=== PATIENT | female | born 1970 | race Caucasian/White ===

== ENCOUNTER → 2017-01-01 07:51 | Day surgery (SDC) | payer OTHER ==
--- NOTE | 2016-12-31 03:40 | HP ---
PREOPERATIVE HISTORY AND PHYSICAL: DATE OF ADMISSION: 01/01/17 [facility] CHIEF COMPLAINT: Left wrist pain. HISTORY OF PRESENT ILLNESS: Tiffani is a 46-year-old female who has pain in her left wrist. She was diagnosed with de Quervain's tenosynovitis. She had physical therapy and injection of cortisone, but these symptoms have recurred. She now presents for left de Quervain's release. PAST MEDICAL HISTORY: Significant for trigger finger, tachycardia, shoulder pain, lateral epicondylitis, cervicalgia, hypothyroidism, attention deficit disorder. MEDICATIONS: 1. Escitalopram oxalate 20 mg p.o. daily. 2. Wellbutrin SR 150 mg p.o. b.i.d. 3. Vitamin B12 1000 mcg p.o. daily. 4. Abilify 2 mg p.o. daily. 5. Levothyroxine 137 mcg 1 p.o. daily. 6. Methylphenidate HCL 18 mg 1 p.o. q.a.m. 7. Amphetamine and dextroamphetamine 10 mg 1 to 4 p.o. daily. DRUG ALLERGIES: SULFA and CODEINE. SOCIAL HISTORY: She lives alone. She denies tobacco use, occasionally consumes alcohol. She exercises regularly. REVIEW OF SYSTEMS: Positive for occasional shortness of breath on exertion, positive for history of depression, anxiety and intermittent back pain. Otherwise negative for cephalic, cardiovascular, respiratory, gastrointestinal, genitourinary, other musculoskeletal, skin, neurologic, endocrine, and hematologic symptoms. PHYSICAL EXAMINATION GENERAL: She is a healthy-appearing very pleasant female in minimal distress at rest. VITAL SIGNS: Height is 61 inches, weight 191 pounds. Pulse 84, blood pressure 118/86, respiratory rate 18. HEENT: Exam is unremarkable. Her eye movements are concentric. NECK: She has good range of motion of her neck with minimal pain. No masses are palpated. LUNGS: Clear to auscultation. Good inspiratory effort. No wheezing. CARDIAC: Regular rate and rhythm without murmur. PERIPHERAL VASCULAR: She has palpable pulses and no peripheral edema. EXTREMITIES: She has some swelling in the area of the radial styloid of her left wrist. She has tenderness to palpation over the radial styloid in the first dorsal compartment. She has a positive Li's test. She can make a fist. Her neurovascular function is intact. NEUROLOGIC: She is alert and oriented without focal deficit. IMPRESSION: Left de Quervain's tenosynovitis, which has failed conservative treatment. PLAN/RECOMMENDATIONS: Plan is for left de Quervain's release. The surgical procedure, risks and benefits were explained to the patient today and she agrees to proceed. We will see her back in followup 10 to 14 days postop. [id number]/[facility] #: [id number]
[~2017-01-01 07:51] MED LIST: Buffered Lidocaine 1% SYRIN* 3 ML/SYR SYRINGE INTRADERM ONE; Lidocaine 1% INJ* 10 MG/ML 30 ML SDV ONE; Midazolam* 1 MG/ML 2 ML VIAL (2 MG) ONE; Propofol* 10 MG/ML 20 ML BTL IV PUSH ONE; fentaNYL* 50 MCG/ML 2 ML VIAL (100 MCG VIAL) ONE
[2017-01-01 10:35] VITALS: BP 107/67
--- NOTE | 2017-01-02 01:44 | OP ---
DATE OF OPERATION: 01/01/17 [facility] DATE OF : 68 SURGEON: Fide Arredondo MD TANGLED YARN SPOOL STRAIGHTENER: MARII Reed ANESTHESIOLOGIST: Anil Hammer MD ANESTHESIA: Local MAC. PRE-OP DIAGNOSIS: Left de Quervain's tenosynovitis. POST-OP DIAGNOSIS: Left de Quervain's tenosynovitis. OPERATIVE PROCEDURE: Left de Quervain's release. INDICATIONS: Tiffani is a 46-year-old female who has pain on the radial aspect of her left wrist. She has had one injection, which gave her relief for several months and now opts for surgery for de Quervain's release. ESTIMATED BLOOD LOSS: Zero. TOURNIQUET TIME: About 10 minutes. DESCRIPTION OF PROCEDURE: The patient was brought to the operating room, was given a sedation anesthetic, and a local infiltration of 10 cc of 1% plain lidocaine at the radial styloid of her left wrist. The skin of her left upper extremity was prepped and draped in the usual sterile fashion. The hand and forearm were exsanguinated and the tourniquet elevated to 250 mmHg. A longitudinal incision was made centered at the tip of the radial styloid. We dissected bluntly through the subcutaneous tissue. Branches of the radial sensory nerve were located and then retracted by the assembler surgical garment, Jeane Cha. The first dorsal compartment was incised longitudinally on the more dorsal aspect. The APL and EPB tendons were in separate compartments and both were thoroughly released. There was abundant tenosynovitis surrounding the tendons and this was debrided. The wound was irrigated and the skin edges were reapproximated with 4-0 nylon suture. The wound was dressed with Xeroform, 4x4 , Webril, and an Pradeep wrap. The patient tolerated the procedure well and was brought to the recovery room in good condition. [id number]/[facility] #: [id number] MTDD
== END | disposition home or self-care (01) ==
LOC: OREAST 07:51
PROVIDERS: ATTEND Orthopaedic Surgery
DX: M65.4 Radial styloid tenosynovitis [de Quervain] (principal); Z88.5 Allergy status to narcotic agent; Z88.2 Allergy status to sulfonamides
CPT/HCPCS: J2001; J2250; J2704; J3010

== ENCOUNTER 2018-02-14 11:39 | Emergency (ER) | payer OTHER ==
[2018-02-14 11:59] VITALS: BP 145/84
--- NOTE | 2018-02-14 12:02 | UC ---
Skin Complaint HPI - HPI Summary HPI Summary: 47 y/o female presents to the urgent care c/o red rash and swelling in her left arm s/p mosquito bite since Saturday02/12/2018. Pt reports itchiness and mild pain, redness spread yesterday. Pain is 2/10 and area is hot to touch. Pt denies Hx of MRSA, fever, numbness or tinglin over her left arm, SOB, chest pain , abdominal pain, N/V/D. Pt request a Tetanus vaccines since it has been >10 years since she hasn't gotten one. She is always having small cuts at home. - History of Current Complaint Chief Complaint: UCUpperExtremity Time Seen by Provider: 02/14/18 11:59 Stated Complaint: RED AREA ON ARM Hx Obtained From: Patient Hx Last Menstrual Period: IUD Onset/Duration: Gradual Onset, Lasting Days - 2 days, Still Present, Worse Since - yesterday Skin Exposure Onset/Duration: Days Ago - 2 days Timing: Constant Onset Severity: Mild Current Severity: Moderate Pain Intensity: 2 Pain Scale Used: 0-10 Numeric Location: Hand (Left) - Left arm rash w/ swelling at itchiness Character: Swelling, Pruritus, Redness Aggravating Factor(s): Touch Alleviating Factor(s): Nothing Associated Signs & Symptoms: Positive: Rash. Negative: Nausea, Vomiting, Difficulty Breathing, Fever, Chills, Throat Tightening, Drainage Related History: Possible Reaction to: Insect - Allergy/Home Medications Allergies/Adverse Reactions: Allergies Allergy/AdvReac Type Severity Reaction Status Date / Time codeine Allergy Rash Verified 02/14/18 11:59 Sulfa (Sulfonamide Allergy Rash And Verified 02/14/18 11:59 Antibiotics) Itching Review of Systems Constitutional: Negative Skin: Rash - left arm redness and swelling, Other - itchiness Eyes: Negative ENT: Negative Respiratory: Negative Cardiovascular: Negative Gastrointestinal: Negative Genitourinary: Negative Motor: Negative Neurovascular: Negative Musculoskeletal: Negative Neurological: Negative Psychological: Negative Is Patient Immunocompromised?: No All Other Systems Reviewed And Are Negative: Yes PMH/Surg Hx/FS Hx/Imm Hx Previously Healthy: Yes Endocrine History: Hypothyroidism Other Endocrine History: vitamin 12 deficiency Psychological History: Anxiety, Depression Other Psychological History: ADD - Surgical History Surgical History: Yes Surgery Procedure, Year, and Place: tonsil,breast reduction - Family History Known Family History: Positive: Cardiac Disease, Hypertension Negative: Diabetes - Social History Alcohol Use: Daily Alcohol Amount: 1-2 drinks on the weekend Substance Use Type: None Substance Use Comment - Amount & Last Used: Weekends Smoking Status (MU): Never Smoked Tobacco Physical Exam - Summary Physical Exam Summary: Vital Signs Reviewed: Yes General: well developed, well nourished female sitting in the examining table w/ o any apparent distress. Eyes: Positive: Conjunctiva Clear - PERRLA, EOMI ENT: Positive: Normal ENT inspection, Hearing grossly normal, Pharynx normal, TMs normal Neck: Positive: Supple, Nontender, No Lymphadenopathy Respiratory: Positive: Chest nontender, Lungs clear, Normal breath sounds Cardiovascular: Positive: RRR, No Murmur, Pulses Normal Abdomen Description: Positive: Nontender, No Organomegaly, Soft. Negative: CVA Tenderness (R), CVA Tenderness (L) Bowel Sounds: Positive: Present Musculoskeletal: Positive: Strength Intact, ROM Intact, No Edema Neurological Exam: Normal Psychological Exam: Normal Skin: Positive: rashes - RT ventral side of LF arm w/ erythematous patch w/ indistinct borders, warm to touch, swelling and tender to palpation about 20cm x5cm in size, insect bite located at the proximal site or left arm Triage Information Reviewed: Yes Vital Signs: Initial Vital Signs Temp 96.5 F 02/14/18 11:51 Pulse 97 02/14/18 11:51 Resp 18 02/14/18 11:51 BP 145/84 02/14/18 11:51 Pulse Ox 98 02/14/18 11:51 Course/Dx - Course Course Of Treatment: 47 y/o female presents to the urgent care c/o red rash and swelling in her left arm s/p mosquito bite since Saturday02/12/2018. Pt reports itchiness and mild pain, redness spread yesterday. Pain is 2/10 and area is hot to touch. Pt denies Hx of MRSA, fever, numbness or tinglin over her left arm, SOB, chest pain, abdominal pain, N/V/D. Pt request a Tetanus vaccines since it has been >10 years since she hasn't gotten one. She is always having small cuts at home. Hx obtained. RT ventral side of LF arm w/ erythematous patch w/ indistinct borders, warm to touch, swelling and tender to palpation about 20cm x5cm in size, insect bite located at the proximal site or left arm on examination. Pt with cellulitis of the RT arm s/p insect bite. Pt Rx Keflex PO , Prednisones taper dose for swelling and bacitracin oint. Rash demarcated with a skin marker and If redness and swelling doubles in size beyond what was demarcated after 48 hrs of taking antibiotic and fever develops please go to the ER immediately. Pt's BP is elevated today advised to decrease salt in diet , monitor BP and f/u with PCP for further management. Pt understood and agreed with D/C instructions. - Differential Diagnoses - Skin Complaint Differential Diagnoses: Abscess, Cellulitis, Local Allergic Reaction, MRSA, Tick Born Illness, Urticaria - Diagnoses Provider Diagnoses: 1- left arm cellulitis s/p insect bite. 2-left arm swelling s/p insect bite. 2-elevated BP w/o Hx of HTN Discharge - Sign-Out/Discharge Documenting (check all that apply): Discharge/Admit/Transfer - D/C home - Discharge Plan Condition: Stable Disposition: HOME Prescriptions: Bacitracin OINTMENT* 1 applic TOPICAL BID #1 tube Cephalexin CAP* [Keflex CAP*] 500 mg PO QID #28 cap predniSONE TAB* [Deltasone TAB*] 20 mg PO DAILY #11 tab Patient Education Materials: Cellulitis (ED), Low-Sodium Diet (ED) Referrals: Tino Pak MD [Primary Care Provider] - 2 Days Additional Instructions: 1-Please take full course of Antibiotic. 2- If redness and swelling doubles in size beyond what was demarcated after 48 hrs of taking antibiotic and fever develops please go to the ER immediately. 3-Avoid too much flexion or your left arm to decrease swelling 4-Take Prednisone PO as directed to alleviate swelling. . 5-If not improving of symptoms F/u with your PCP or return to the [facility] in 2 days for further evaluation and treatment. 6-Your BP is elevated today. please decrease salt in your diet, monitor BP and if it continues to be elevated please f/u with your PCP for further management - Billing Disposition and Condition Condition: STABLE Disposition: HOME
[2018-02-14] MEDS ORDERED: Tetan/Diph/Pertus SYR(Tdap)* 0.5 ML SYR(BOOSTRIX) use SYR IM ONE (12:22)
== END 2018-02-14 12:45 | disposition home or self-care (01) ==
LOC: UCEAST 11:39
DX: S40.862A Insect bite (nonvenomous) of left upper arm, initial encounter (principal); L03.114 Cellulitis of left upper limb; W57.XXXA Bitten or stung by nonvenomous insect and other nonvenomous arthropods, initial encounter; Y93.9 Activity, unspecified; Y92.9 Unspecified place or not applicable; Z23 Encounter for immunization; E03.9 Hypothyroidism, unspecified; E55.9 Vitamin D deficiency, unspecified; F41.9 Anxiety disorder, unspecified; F32.9 Major depressive disorder, single episode, unspecified; F98.8 Other specified behavioral and emotional disorders with onset usually occurring in childhood and adolescence; Z88.5 Allergy status to narcotic agent; Z88.2 Allergy status to sulfonamides
CPT/HCPCS: 90471; 90715; 99212; G0463

== ENCOUNTER 2018-02-25 14:23 | Emergency (ER) | payer OTHER ==
[2018-02-25 14:42] VITALS: BP 131/71
[2018-02-25] MEDS ORDERED: DOXYcycline CAP(*) 100 MG PO ONE (15:17)
--- NOTE | 2018-02-25 15:20 | ED ---
Bite Injury/Animal - HPI Summary HPI Summary: Complains of tick bite to right abdomen with skin reaction. States tick was in place for about 18 hours, patient removed tick herself. Also complains of skin reactions to 4 mosquito bites. Also here for recheck on prior left upper arm cellulitis. Eyes fever, cough, sore throat, CP, SOB, N/V/D, abdomen pain, change in urinary or BM, body aches, BOBO. - History of Current Complaint Chief Complaint: UCSkin Stated Complaint: TICK BITE Time Seen by Provider: 02/25/18 14:31 Hx Last Menstrual Period: IUD Pain Intensity: 0 - Allergies/Home Medications Allergies/Adverse Reactions: Allergies Allergy/AdvReac Type Severity Reaction Status Date / Time codeine Allergy Rash Verified 02/25/18 14:33 Sulfa (Sulfonamide Allergy Rash And Verified 02/25/18 14:33 Antibiotics) Itching PMH/Surg Hx/FS Hx/Imm Hx Endocrine/Hematology History: Reports: Hx Thyroid Disease - hypothyroid, controlled with medication Denies: Hx Diabetes Cardiovascular History: Denies: Hx Hypertension, Hx Pacemaker/ICD Respiratory History: Reports: Hx Sleep Apnea - awaiting possible sleep study after seeing ENT Denies: Hx Asthma GI History: Reports: Other GI Disorders - occasional "heartburn" maybe "once a week" Musculoskeletal History: Reports: Other Musculoskeletal History - left wrist- tenosynovitis Denies: Hx Scoliosis Sensory History: Reports: Hx Contacts or Glasses - reading Denies: Hx Hearing Aid Opthamlomology History: Reports: Hx Contacts or Glasses - reading Neurological History: Reports: Other Neuro Impairments/Disorders - ADD, controlled with medication Denies: Hx Headaches Psychiatric History: Reports: Hx Anxiety - has new medication-xanax, Hx Depression - controlled with medication Denies: Hx Panic Disorder - Surgical History Surgery Procedure, Year, and Place: tonsil,breast reduction; Left Wrist Hx Anesthesia Reactions: No Infectious Disease History: No Infectious Disease History: Denies: Traveled Outside the [place] in Last 30 Days - Family History Known Family History: Positive: Cardiac Disease, Hypertension Negative: Diabetes - Social History Alcohol Use: Daily Alcohol Amount: 1-2 drinks on the weekend Substance Use Type: Reports: None Substance Use Comment - Amount & Last Used: Weekends Smoking Status (MU): Never Smoked Tobacco Review of Systems Constitutional: Negative Eyes: Negative ENT: Negative Cardiovascular: Negative Respiratory: Negative Gastrointestinal: Negative Genitourinary: Negative Musculoskeletal: Negative Skin: Negative Neurological: Negative Psychological: Normal All Other Systems Reviewed And Are Negative: Yes Physical Exam - Summary Physical Exam Summary: 6 cm x 6 cm area of skin reaction to tick bite on right abdomen. Multiple insect bites with swelling. No indication of cellulitis or purulent drainage anywhere. No evidence of remaining cellulitis to left upper arm. Triage Information Reviewed: Yes Vital Signs On Initial Exam: Initial Vitals Temp Pulse Resp BP Pulse Ox 98.8 F 100 18 131/71 100 02/25/18 14:37 02/25/18 14:37 02/25/18 14:37 02/25/18 14:37 02/25/18 14:37 Vital Signs Reviewed: Yes Appearance: Positive: Well-Appearing Skin: Positive: Warm Head/Face: Positive: Normal Head/Face Inspection Eyes: Positive: Normal ENT: Positive: Normal ENT inspection Neck: Positive: Supple Respiratory/Lung Sounds: Positive: Clear to Auscultation Cardiovascular: Positive: Normal Abdomen Description: Positive: Nontender Musculoskeletal: Positive: Normal Neurological: Positive: Normal Psychiatric: Positive: Normal AVPU Assessment: Alert - Whit Coma Scale Best Eye Response: 4 - Spontaneous Best Motor Response: 6 - Obeys Commands Best Verbal Response: 5 - Oriented Coma Scale Total: 15 Diagnostics - Vital Signs Vital Signs Temp Pulse Resp BP Pulse Ox 02/25/18 14:37 98.8 F 100 18 131/71 100 - Laboratory Lab Statement: Any lab studies that have been ordered have been reviewed, and results considered in the medical decision making process. Bite Injury Course/Dx - Course Course Of Treatment: Tick bite with moderate reaction. Doxycycline prophylactic. Prednisone by mouth - Diagnoses Provider Diagnosis: Tick bite, Allergic reaction Discharge - Sign-Out/Discharge Documenting (check all that apply): Discharge/Admit/Transfer - Discharge Plan Condition: Stable Disposition: HOME Prescriptions: predniSONE TAB* [Deltasone TAB*] 40 mg PO DAILY 5 Days #5 tab Patient Education Materials: Insect Bite or Sting (ED), Tick Bite (ED) Referrals: Tino Pak MD [Primary Care Provider] - Additional Instructions: Follow-up with primary care. - Billing Disposition and Condition Condition: STABLE Disposition: HOME
== END 2018-02-25 15:29 | disposition home or self-care (01) ==
LOC: UCEAST 14:23
DX: S30.861A Insect bite (nonvenomous) of abdominal wall, initial encounter (principal); W57.XXXA Bitten or stung by nonvenomous insect and other nonvenomous arthropods, initial encounter; Y93.9 Activity, unspecified; Y92.9 Unspecified place or not applicable; E03.9 Hypothyroidism, unspecified; F98.8 Other specified behavioral and emotional disorders with onset usually occurring in childhood and adolescence; F41.9 Anxiety disorder, unspecified; F32.9 Major depressive disorder, single episode, unspecified; Z88.5 Allergy status to narcotic agent; Z88.2 Allergy status to sulfonamides
CPT/HCPCS: 99212; A9270-GY; G0463

== ENCOUNTER 2018-03-14 11:59 | Emergency (ER) | payer OTHER ==
[2018-03-14 12:29] VITALS: BP 134/88
--- NOTE | 2018-03-14 13:32 | ED ---
Skin Complaint - HPI Summary HPI Summary: Patient is a 48-year-old female presenting to the with left erythematous, warm area to the left upper extremity measuring 6 cm x 4 cm. Patient states she has been having multiple areas which are similar after bug bites. No known allergies to insects. She has an appointment with an architect internship in 2 weeks. States she has been given prednisone and Keflex in the past, but does not feel she needs these as they are an allergic reaction. She has been taking Zyrtec [id number] with relief of symptoms. She arrives today however after taking Zyrtec last evening and the area did not dissipate. She denies the area spreading and denies any fevers, sweats, chills. She has also been using an [id number] steroid, but has not used it today. - History of Current Complaint Chief Complaint: UCSkin Time Seen by Provider: 03/14/18 12:34 Stated Complaint: SKIN ISSUE Hx Obtained From: Patient Hx Last Menstrual Period: IUD Onset/Duration: Started Hours Ago Skin Exposure Onset/Duration: Hours Ago Timing: Constant Onset Severity: Moderate Current Severity: Moderate Pain Intensity: 0 Pain Scale Used: 0-10 Numeric Skin Location: Arm Character: Swelling, Redness Aggravating Symptom(s): Nothing Alleviating Symptom(s): Antihistamines, Cold Compresses Associated Signs & Symptoms: Negative Related History: Insect Bite/Sting - Allergy/Home Medications Allergies/Adverse Reactions: Allergies Allergy/AdvReac Type Severity Reaction Status Date / Time doxycycline Allergy Severe See Comment Verified 03/14/18 12:20 codeine Allergy Rash Verified 03/14/18 12:20 Sulfa (Sulfonamide Allergy Rash And Verified 03/14/18 12:20 Antibiotics) Itching Home Medications: Home Medications Cetirizine* [ZyrTEC 10 MG TAB*] 1 tab PO DAILY 03/14/18 [History Confirmed 03/14] Nizatidine 150 mg PO DAILY PRN 03/14/18 [History Confirmed 03/14/18] PMH/Surg Hx/FS Hx/Imm Hx Previously Healthy: Yes Endocrine/Hematology History: Reports: Hx Thyroid Disease - hypothyroid, controlled with medication Denies: Hx Diabetes Cardiovascular History: Denies: Hx Hypertension, Hx Pacemaker/ICD Respiratory History: Reports: Hx Sleep Apnea - awaiting possible sleep study after seeing ENT Denies: Hx Asthma GI History: Reports: Other GI Disorders - occasional "heartburn" maybe "once a week" Musculoskeletal History: Reports: Other Musculoskeletal History - left wrist- tenosynovitis Denies: Hx Scoliosis Sensory History: Reports: Hx Contacts or Glasses - reading Denies: Hx Hearing Aid Opthamlomology History: Reports: Hx Contacts or Glasses - reading Neurological History: Reports: Other Neuro Impairments/Disorders - ADD, controlled with medication Denies: Hx Headaches Psychiatric History: Reports: Hx Anxiety - has new medication-xanax, Hx Depression - controlled with medication Denies: Hx Panic Disorder - Surgical History Surgery Procedure, Year, and Place: tonsil,breast reduction; Left Wrist Hx Anesthesia Reactions: No - Immunization History Hx Pertussis Vaccination: No Immunizations Up to Date: Unable to Obtain/Confirm Infectious Disease History: No Infectious Disease History: Denies: Traveled Outside the [place] in Last 30 Days - Family History Known Family History: Positive: Cardiac Disease, Hypertension Negative: Diabetes - Social History Occupation: Employed Full-time Lives: With Family Alcohol Use: Daily Alcohol Amount: 1-2 drinks on the weekend Hx Substance Use: No Substance Use Type: Reports: None Substance Use Comment - Amount & Last Used: Weekends Smoking Status (MU): Never Smoked Tobacco Review of Systems Constitutional: Negative Negative: Fever, Chills, Fatigue, Skin Diaphoresis Cardiovascular: Negative Negative: Palpitations, Chest Pain Respiratory: Negative Negative: Shortness Of Breath, Cough Genitourinary: Negative Positive: no symptoms reported, see HPI Negative: Arthralgia, Myalgia Positive: Other - erythematous warm area to the left upper arm Neurological: Negative Psychological: Normal All Other Systems Reviewed And Are Negative: Yes Physical Exam Triage Information Reviewed: Yes Vital Signs On Initial Exam: Initial Vitals Temp Pulse Resp BP Pulse Ox 98.9 F 82 14 134/88 99 03/14/18 12:23 03/14/18 12:23 03/14/18 12:23 03/14/18 12:23 03/14/18 12:23 Vital Signs Reviewed: Yes Appearance: Positive: Well-Appearing, Well-Nourished Skin: Positive: Warm, Skin Color Reflects Adequate Perfusion, Other - erythematous warm area to the left upper arm Neck: Positive: Supple, No Lymphadenopathy Respiratory/Lung Sounds: Positive: Clear to Auscultation, Breath Sounds Present Cardiovascular: Positive: Normal, RRR Musculoskeletal: Positive: Normal, Strength/ROM Intact Neurological: Positive: Speech Normal Psychiatric: Positive: Normal, Affect/Mood Appropriate Diagnostics - Vital Signs Vital Signs Temp Pulse Resp BP Pulse Ox 03/14/18 12:23 98.9 F 82 14 134/88 99 - Laboratory Lab Statement: Any lab studies that have been ordered have been reviewed, and results considered in the medical decision making process. Course/Dx - Course Course Of Treatment: Patient is evaluated for allergic reactions to bug bites. Denies any throat symptoms or cough. Denies any other allergic reactions. She is encouraged an H1 and an H2 dejon as well as the steroid topical. I do not feel she needs antibiotics as this is an allergic reaction and not cellulitis. However, she understands return precautions. She will use her fluocinonide and she is given Atarax and will take her Zyrtec. She will also follow up with her architect internship. - Diagnoses Provider Diagnoses: Allergic reaction Discharge - Sign-Out/Discharge Documenting (check all that apply): Discharge/Admit/Transfer - Discharge Plan Condition: Stable Disposition: HOME Prescriptions: hydrOXYzine HCL TAB* [Atarax 25 MG TAB*] 25 mg PO TID PRN #12 tab PRN Reason: Itching Patient Education Materials: General Allergic Reaction (ED), Cold Compress or Soak (ED) Referrals: Tino Pak MD [Primary Care Provider] - Additional Instructions: Ice compresses to the area Continue over the counter topical steroid Continue with zyrtec (H2 dejon) daily May add on Hydroxyzine (H1 dejon) for any itching Do not drive with this medication as it may may you drowsy - Billing Disposition and Condition Condition: STABLE Disposition: HOME
== END 2018-03-14 13:12 | disposition home or self-care (01) ==
LOC: UCEAST 11:59
DX: T78.40XA Allergy, unspecified, initial encounter (principal); Z88.3 Allergy status to other anti-infective agents; Z88.5 Allergy status to narcotic agent; Z88.2 Allergy status to sulfonamides; E03.9 Hypothyroidism, unspecified; G47.30 Sleep apnea, unspecified; R12 Heartburn; F41.9 Anxiety disorder, unspecified
CPT/HCPCS: 99212; G0463

== ENCOUNTER 2019-01-05 16:03 | Emergency (ER) | payer OTHER ==
--- NOTE | 2019-01-05 17:09 | UC ---
Skin Complaint HPI - HPI Summary HPI Summary: 48 y/o female presents to the urgent care c/o five tick bites since yesterday. Pt reports [place], then she went home and took a nap. When she woke up she realized she has a tick in her left buttocks and 2 in her neck. She checked the rest of her body and had another one in the upper back and in her RT thigh. Seh removed them. However, she thinks some remnants still presents in her neck and buttocks. Pain at touch is 1/10. She states last year she had alos tick bites and she was given Doxycycline prophylactically and she developed an allergic reaction her throat was mildly swollen w/ sore throat and cough and mild SOB. Her PCP told her she shouldn't take the antibiotic again. Pt deneis fever, rash, SOB, chest pain, joint pain, abdominal pain, N/V/D. - History of Current Complaint Time Seen by Provider: 01/05/19 17:06 Stated Complaint: TICK BITE Hx Obtained From: Patient Hx Last Menstrual Period: IUD ?: No Onset/Duration: Sudden Onset, Lasting Days - 1 day, Still Present Skin Exposure Onset/Duration: Days Ago - 1 day Timing: Constant Onset Severity: Mild Current Severity: Mild Pain Intensity: 1 Pain Scale Used: 0-10 Numeric Location: Discrete - left buttocks, upper back, neck and Rt thigh Character: Pain, Redness Aggravating Factor(s): Touch Alleviating Factor(s): Other - tick removal Associated Signs & Symptoms: Positive: Rash - five tick bites, Tenderness Related History: Possible Reaction to: Insect - Allergy/Home Medications Allergies/Adverse Reactions: Allergies Allergy/AdvReac Type Severity Reaction Status Date / Time doxycycline Allergy Mild See Comment Verified 01/05/19 17:16 codeine Allergy Rash Verified 01/05/19 17:16 Sulfa (Sulfonamide Allergy Rash And Verified 01/05/19 17:16 Antibiotics) Itching Home Medications: Home Medications DULoxetine DR BARILLAS* [Cymbalta CAP*] 60 mg PO ONCE 01/05/19 [History Confirmed ] PMH/Surg Hx/FS Hx/Imm Hx Previously Healthy: Yes Endocrine History: Hypothyroidism Psychological History: Anxiety, Depression - Surgical History Surgical History: Yes Surgery Procedure, Year, and Place: tonsil,breast reduction; Left Wrist - Family History Known Family History: Positive: Cardiac Disease, Hypertension Negative: Diabetes - Social History Occupation: Employed Full-time Lives: With Family Alcohol Use: Daily Alcohol Amount: 1-2 drinks on the weekend Substance Use Type: None Substance Use Comment - Amount & Last Used: Weekends Smoking Status (MU): Never Smoked Tobacco Review of Systems All Other Systems Reviewed And Are Negative: Yes Constitutional: Positive: Negative Skin: Positive: Other - 5 tick bite in different parts of the body Eyes: Positive: Negative ENT: Positive: Negative Respiratory: Positive: Negative Cardiovascular: Positive: Negative Gastrointestinal: Positive: Negative Genitourinary: Positive: Negative Motor: Positive: Negative Neurovascular: Positive: Negative Musculoskeletal: Positive: Negative Neurological: Positive: Negative Psychological: Positive: Negative Is Patient Immunocompromised?: No Physical Exam - Summary Physical Exam Summary: Vital Signs Reviewed: Yes General: well developed, well nourished female sitting in the examining table w/ o any apparent distress. Eyes: Positive: Conjunctiva Clear - PERRLA, EOMI ENT: Positive: Normal ENT inspection, Hearing grossly normal, Pharynx normal, TMs normal Neck: Positive: Supple, Nontender, No Lymphadenopathy Respiratory: Positive: Chest nontender, Lungs clear, Normal breath sounds Cardiovascular: Positive: RRR, No Murmur, Pulses Normal Abdomen Description: Positive: Nontender, No Organomegaly, Soft. Negative: CVA Tenderness (R), CVA Tenderness (L) Bowel Sounds: Positive: Present Musculoskeletal: Positive: Strength Intact, ROM Intact, No Edema Neurological Exam: Normal Psychological Exam: Normal Skin: Positive: rashes - left side of the neck, left buttocks, upper back and RT thigh with tick bites with mild surrounding erythema, non tender to palpation. tick no longer present, no swelling or drainage observed.The neck and buttock had some remnants presents which were removed. Triage Information Reviewed: Yes Course/Dx - Course Course Of Treatment: 48 y/o female presents to the urgent care c/o five tick bites since yesterday. Pt reports [place], then she went home and took a nap. When she woke up she realized she has a tick in her left buttocks and 2 in her neck. She checked the rest of her body and had another one in the upper back and in her RT thigh. She removed them. However, she thinks some remnants still presents in her neck and buttocks. Pain at touch is 1/10. She states last year she had also tick bites and she was given Doxycycline prophylactically and she developed an allergic reaction her throat was mildly swollen w/ sore throat and cough and mild SOB. Her PCP told her she shouldn't take the antibiotic again. Pt denies fever, rash, SOB, chest pain, joint pain, abdominal pain, N/V/D.Hx obtained. Pt w/ left side of the neck, left buttocks, upper back and RT thigh with tick bites with mild surrounding erythema, non tender to palpation. tick no longer present, no swelling or drainage observed.The neck and buttock had some remnants presents which were removed. Bacitracin applied over tick bites to prevent infection. Since Pt is allergic to Doxycycline, no prophylactic treatment can be given. Pt was advised we can give treatment for Lyme w/ Amoxicillin PO x 2 weeks or she can wait and observe for the development or Erythema Migrans for upto 30 days following exposure. Pt agreed w/ observation and She was strongly recommended that there is possibility the serology returns negative the first 2 weeks of exposure. Therefore, strongly advised to f/u with Dr Randall or her PCP in 2-3 weeks for a Lyme serology if she really wants to find out if she has been expose w/ Lyme. Pt also advised if she develops fever, BOBO, joint pains advised to f/u w/ her PCP or DR Randall for further management. Pt understood and agreed with plan of care. - Differential Diagnoses - Skin Complaint Differential Diagnoses: Abscess, Cellulitis, Contact Dermatitis, Local Allergic Reaction, Poison Hetal, Poison Santa Claus, Tick Born Illness, Tinea, Urticaria - Diagnoses Provider Diagnosis: Tick bite of buttock, Tick bite of neck, Elevated BP without diagnosis of hypertension Discharge - Sign-Out/Discharge Documenting (check all that apply): Patient Departure - d/c home All imaging exams completed and their final reports reviewed: No Studies - Discharge Plan Condition: Stable Disposition: HOME Patient Education Materials: Tick Bite (ED) Referrals: Tino Pak MD [Primary Care Provider] - Additional Instructions: 1- Please observe the area for the development or Erythema Migrans for upto 30 days following exposure. Components of the tick saliva can cause transient erythema that should not be confused with Erythema Migrans. If you develop the bull's eye rash, fever, joint pains please return to the urgent care or f/u with your PCP for further management. 2-Since you are allergic to doxycycline PO which is the prophylactic treatment for Lyme , please s/u w/ your PC or Dr Randall for Lyme serology which can be drawn in 2 weeks to r/o Lyme disease since there is probability of negative results at early exposure. 3- Your BP is elevated today. please decrease salt in your diet, monitor BP and if it continues to be elevated please f/u with your PCP for further management. - Billing Disposition and Condition Condition: STABLE Disposition: Home
[2019-01-05 17:15] VITALS: BP 144/82
== END 2019-01-05 18:05 | disposition home or self-care (01) ==
LOC: UCEAST 16:03
DX: S30.860A Insect bite (nonvenomous) of lower back and pelvis, initial encounter (principal); S10.96XA Insect bite of unspecified part of neck, initial encounter; R03.0 Elevated blood-pressure reading, without diagnosis of hypertension; F32.9 Major depressive disorder, single episode, unspecified; F41.9 Anxiety disorder, unspecified; Z88.1 Allergy status to other antibiotic agents; Z88.5 Allergy status to narcotic agent; Z88.2 Allergy status to sulfonamides; W57.XXXA Bitten or stung by nonvenomous insect and other nonvenomous arthropods, initial encounter; Y92.9 Unspecified place or not applicable
CPT/HCPCS: 99211; G0463

== ENCOUNTER 2021-01-11 19:04 | Inpatient (IN) ==
[2021-01-11] MEDS ORDERED: Charcoal ACTIVATED 25 GM/120 ML BTL PO ONE ×2 (19:15→21:03)
[2021-01-11 19:30] LABS: ABS Basophils 0.1 10^3/ul (0-0.2); ABS Eosinophils 0.2 10^3/ul (0-0.6); ABS Lymphocytes 3.5 10^3/ul (1.0-4.8); ABS Monocytes 0.7 10^3/ul (0-0.8); ABS Neutrophils 4.1 10^3/ul (1.5-7.7); Eosinophil % 2.2 %; Hematocrit 41 % (35-47); Hemoglobin 13.8 g/dL (12.0-16.0); Mean Corpuscular HGB Conc 34 g/dL (31-36); Mean Corpuscular Hemoglobin 31 pg (27-31); Mean Corpuscular Volume 91 fL (80-97); Mean Platelet Volume 8.2 fL (7.4-10.4); Platelet Count 347 10^3/uL (150-450); Red Blood Count 4.47 10^6 /uL (3.70-4.87); Red Cell Distribution Width 13 % (10-15); White Blood Count 8.6 10^3/uL (3.5-10.8)
[2021-01-11 19:55] LABS: Alcohol, S < 10 mg/dL (<10); Salicylate < 2.50 mg/dL (<30)
[2021-01-11 19:56] LABS: ALT 17 U/L (7-52); AST 18 U/L (13-39); Albumin 4.5 g/dL (3.2-5.2); Alkaline Phosphatase 104 U/L (34-104); Anion Gap 11 mmol/L (2-11); BUN/Creatinine Ratio 17.6 (8-20); Blood Urea Nitrogen 18 mg/dL (6-24); CO2 Carbon Dioxide 21 mmol/L (22-32); Calcium 9.9 mg/dL (8.6-10.3); Chloride 105 mmol/L (101-111); EGFR African American 69.1 (>60); EGFR Non-African American 57.1 (>60); Globulin 2.3 g/dL (2-4); Glucose 123 mg/dL (70-100); Potassium 3.3 mmol/L (3.5-5.0); Sodium 137 mmol/L (135-145); Total Protein 6.8 g/dL (6.4-8.9)
[2021-01-11 20:07] LABS: Acetaminophen < 15 mcg/mL
[2021-01-11 21:42] LABS: Urine Appearance Cloudy; Urine Bilirubin Negative (Negative); Urine Blood Negative (Negative); Urine Color Yellow; Urine Glucose Negative (Negative); Urine Ketones Trace (Negative); Urine Nitrite Negative (Negative); Urine Protein 1+(30 mg/dL) (Negative); Urine Specific Gravity 1.025 (1.002-1.030); Urine Urobilinogen Negative (Negative)
[2021-01-11] MEDS ORDERED: Potassium Chlor 10 meq TAB PO ONE (21:44)
[2021-01-11 21:47] LABS: Urine Bacteria Absent (Absent); Urine Red Blood Cell Absent (Absent); Urine Squamous Epithelial Cell Present (Absent); Urine White Blood Cell Absent (Absent)
[2021-01-11] MEDS: NS 0.9% 1000 ml BAG 2,000 ML IV ONE (21:54)
[2021-01-11 22:00] LABS: Urine Benzodiazepine Screen None Detected (None Detect); Urine Cannabinoids Screen Presumptive Positive (None Detect); Urine Opiates Screen None Detected (None Detect)
[2021-01-11] MEDS ORDERED: Ondansetron 4 mg VIAL 2 MG/ML 2 ml VIAL ONE (22:00)
[2021-01-11] MEDS ORDERED: Ondansetron 4 mg VIAL 2 MG/ML 2 ml VIAL IV ONE (22:01)
[2021-01-11] MEDS ORDERED: Lactated Ringers 1000 ml BAG 1,000 ML IV ONE (22:28)
[2021-01-12] MEDS: Ondansetron 4 mg VIAL 2 MG/ML 2 ml VIAL IV PRN ×2 (01:35→07:26)
[2021-01-12] MEDS: Enoxaparin 40 MG/0.4 ML SYR SUBCUT SCH ×2 (01:45→20:32)
[2021-01-12 05:44] LABS: ABS Lymphocytes 1.5 10^3/ul (1.0-4.8); ABS Monocytes 0.4 10^3/ul (0-0.8); ABS Neutrophils 7.1 10^3/ul (1.5-7.7); Hematocrit 31 % (35-47); Hemoglobin 10.5 g/dL (12.0-16.0); Lymphocyte % 16.3 %; Mean Corpuscular HGB Conc 34 g/dL (31-36); Mean Corpuscular Hemoglobin 31 pg (27-31); Mean Corpuscular Volume 92 fL (80-97); Mean Platelet Volume 8.7 fL (7.4-10.4); Platelet Count 252 10^3/uL (150-450); Red Blood Count 3.39 10^6 /uL (3.70-4.87); Red Cell Distribution Width 13 % (10-15); White Blood Count 9.1 10^3/uL (3.5-10.8)
[2021-01-12 05:56] LABS: BUN/Creatinine Ratio 16.9 (8-20); Blood Urea Nitrogen 12 mg/dL (6-24); CO2 Carbon Dioxide 20 mmol/L (22-32); Calcium 8.3 mg/dL (8.6-10.3); Chloride 111 mmol/L (101-111); EGFR Non-African American 86.8 (>60); Glucose 125 mg/dL (70-100); Sodium 139 mmol/L (135-145)
[2021-01-12 06:18] LABS: Anion Gap 8 mmol/L (2-11)
[2021-01-12 08:48] LABS: Magnesium 1.6 mg/dL (1.9-2.7); Phosphorus 2.2 mg/dL (2.5-5.0)
[2021-01-12] MEDS ORDERED: Lorazepam PYXIS KEY ONE (09:15)
[2021-01-12] MEDS ORDERED: LORazepam 2 mg VIAL 1 ml ONE ×3 (09:16→09:48)
[2021-01-12] MEDS ORDERED: Midazolam 5 mg/5 ml VIAL 1 mg/ml 5 ml VIAL (5 mg) ONE ×2 (09:23→09:48)
[2021-01-12] MEDS ORDERED: LORazepam 2 mg VIAL 1 ml IM ONE ×2 (09:31→09:46)
[2021-01-12] MEDS ORDERED: Lorazepam PYXIS KEY PRN ×2 (09:31→12:13)
[2021-01-12] MEDS ORDERED: Midazolam 2 mg/2 ml VIAL 1 mg/ml 2 ml VIAL (2 mg) IM ONE ×3 (09:31→09:46)
[2021-01-12] MEDS ORDERED: Potassium Phosphate IV 15 MMOLE in NS 0.9% 250 ml 250 ML IVPB ONE (10:16)
[2021-01-12] MEDS ORDERED: Magnesium Sulf 4 GM/100 ML IV 4,000 MG/100 ML BAG IVPB ONE (10:16)
[2021-01-12] MEDS ORDERED: KCL 20 MEQ/100 ML IVPREMIX 20 MEQ/100 ML BAG IV ONE (10:16)
[2021-01-12] MEDS ORDERED: Sodium Bicarb 8.4% Vial 50 ML 150 MEQ in D5W 1000 ml BAG 850 ML IV SCH (11:00)
[2021-01-12] MEDS ORDERED: LORazepam 2 mg VIAL 1 ml IV PUSH PRN (12:13)
[2021-01-12 15:23] LABS: HIV 4th Generation Nonreactive (Nonreactive)
[2021-01-12 15:37] LABS: BUN/Creatinine Ratio 13.9 (8-20); Calcium 8.6 mg/dL (8.6-10.3); EGFR African American 103.3 (>60); EGFR Non-African American 85.4 (>60); Magnesium 3.7 mg/dL (1.9-2.7); Phosphorus 2.9 mg/dL (2.5-5.0); Potassium 3.7 mmol/L (3.5-5.0)
[2021-01-12 21:33] LABS: BUN/Creatinine Ratio 11.8 (8-20); Calcium 8.6 mg/dL (8.6-10.3); EGFR African American 110.4 (>60); EGFR Non-African American 91.2 (>60); Magnesium 2.7 mg/dL (1.9-2.7); Phosphorus 3.1 mg/dL (2.5-5.0); Potassium 3.7 mmol/L (3.5-5.0)
[2021-01-13 05:36] LABS: INR 0.94 (0.82-1.09)
[2021-01-13 05:47] LABS: Albumin 3.6 g/dL (3.2-5.2); Albumin/Globulin Ratio 1.9 (1-3); BUN/Creatinine Ratio 10.8 (8-20); Calcium 8.7 mg/dL (8.6-10.3); EGFR African American 100.1 (>60); EGFR Non-African American 82.7 (>60); Globulin 1.9 g/dL (2-4); Magnesium 2.4 mg/dL (1.9-2.7); Phosphorus 3.2 mg/dL (2.5-5.0); Potassium 3.2 mmol/L (3.5-5.0); Total Bilirubin 0.5 mg/dL (0.2-1.0); Total Protein 5.5 g/dL (6.4-8.9)
[2021-01-13] MEDS ORDERED: Potassium Chlor 20 meq TAB.ER PO ONE (07:32)
[2021-01-13] MEDS: Pantoprazole VIAL 40 MG VIAL IV SCH (09:01)
[2021-01-13] MEDS ORDERED: Al Hydrox/Mg Hydrox/Simet LIQ 30 ML UDC PO PRN (13:55)
[2021-01-14] MEDS: Enoxaparin 40 MG/0.4 ML SYR SUBCUT SCH (00:29)
[2021-01-14 08:23] LABS: HDL Cholesterol 70.1 mg/dL
[2021-01-14] MEDS: Pantoprazole VIAL 40 MG VIAL IV SCH (09:04)
[2021-01-14] MEDS: DULoxetine DR 60 mg CAP PO SCH (09:04)
[2021-01-15] MEDS: DULoxetine DR 60 mg CAP PO SCH (07:46)
[2021-01-16] MEDS: DULoxetine DR 60 mg CAP PO SCH (07:28)
[2021-01-17] MEDS: DULoxetine DR 60 mg CAP PO SCH (08:47)
[2021-01-18] MEDS: DULoxetine DR 60 mg CAP PO SCH (07:45)
[2021-01-18] MEDS: Amphetamine MIXED SALT 10mgTAB PO SCH (14:29)
[2021-01-19] MEDS: DULoxetine DR 60 mg CAP PO SCH (09:20)
[2021-01-19] MEDS: Amphetamine MIXED SALT 10mgTAB PO SCH ×2 (09:21→14:06)
[2021-01-20] MEDS: Amphetamine MIXED SALT 10mgTAB PO SCH ×2 (07:54→15:20)
[2021-01-20] MEDS: DULoxetine DR 60 mg CAP PO SCH (07:54)
[2021-01-21] MEDS: DULoxetine DR 60 mg CAP PO SCH (07:49)
[2021-01-21] MEDS: Amphetamine MIXED SALT 10mgTAB PO SCH ×2 (07:49→14:28)
[2021-01-22] MEDS: DULoxetine DR 60 mg CAP PO SCH (07:50)
[2021-01-22] MEDS: Amphetamine MIXED SALT 10mgTAB PO SCH ×2 (07:50→14:07)
[2021-01-23] MEDS: DULoxetine DR 60 mg CAP PO SCH (07:31)
[2021-01-23] MEDS: Amphetamine MIXED SALT 10mgTAB PO SCH (07:31)
[2021-01-23 08:34] VITALS: BP 140/80
== END 2021-01-23 11:53 | disposition home or self-care (01) | DRG 751 ==
LOC: ED 19:04 → ICU 22:18 → BSU 01-13 16:09
PROVIDERS: ADMIT Internal Medicine; ATTEND Psychiatry & Neurology Psychiatry

== ENCOUNTER 2021-01-27 20:22 | Inpatient (IN) ==
[2021-01-27 23:48] LABS: ABS Basophils 0.2 10^3/ul (0-0.2); ABS Eosinophils 0.1 10^3/ul (0-0.6); ABS Lymphocytes 3.3 10^3/ul (1.0-4.8); ABS Monocytes 0.7 10^3/ul (0-0.8); ABS Neutrophils 7.6 10^3/ul (1.5-7.7); Hematocrit 41 % (35-47); Hemoglobin 13.6 g/dL (12.0-16.0); Mean Corpuscular HGB Conc 34 g/dL (31-36); Mean Corpuscular Hemoglobin 31 pg (27-31); Mean Corpuscular Volume 92 fL (80-97); Mean Platelet Volume 7.3 fL (7.4-10.4); Platelet Count 376 10^3/uL (150-450); Red Blood Count 4.41 10^6 /uL (3.70-4.87); Red Cell Distribution Width 13 % (10-15)
[2021-01-27 23:51] LABS: Urine Appearance Cloudy; Urine Bilirubin Negative (Negative); Urine Blood Negative (Negative); Urine Color Amber; Urine Glucose Negative (Negative); Urine Ketones Negative (Negative); Urine Nitrite Negative (Negative); Urine Protein 1+(30 mg/dL) (Negative); Urine Specific Gravity 1.028 (1.002-1.030); Urine Urobilinogen Negative (Negative)
[2021-01-27 23:56] LABS: Urine Bacteria Absent (Absent); Urine Red Blood Cell Trace(0-2/hpf) (Absent); Urine Squamous Epithelial Cell Present (Absent); Urine White Blood Cell Trace(0-5/hpf) (Absent)
[2021-01-28 00:11] LABS: ALT 13 U/L (7-52); AST 15 U/L (13-39); Acetaminophen < 15 mcg/mL; Albumin 4.3 g/dL (3.2-5.2); Albumin/Globulin Ratio 1.8 (1-3); Alcohol, S < 10 mg/dL (<10); Alkaline Phosphatase 101 U/L (34-104); Anion Gap 8 mmol/L (2-11); BUN/Creatinine Ratio 23.6 (8-20); Blood Urea Nitrogen 21 mg/dL (6-24); CO2 Carbon Dioxide 22 mmol/L (22-32); Calcium 9.8 mg/dL (8.6-10.3); Chloride 105 mmol/L (101-111); EGFR African American 80.9 (>60); EGFR Non-African American 66.9 (>60); Globulin 2.4 g/dL (2-4); Glucose 96 mg/dL (70-100); Potassium 3.8 mmol/L (3.5-5.0); Salicylate < 2.50 mg/dL (<30); Sodium 135 mmol/L (135-145); Total Protein 6.7 g/dL (6.4-8.9)
[2021-01-28 00:12] LABS: Urine Benzodiazepine Screen None Detected (None Detect); Urine Cannabinoids Screen Presumptive Positive (None Detect); Urine Opiates Screen None Detected (None Detect)
[2021-01-28 00:26] LABS: TSH Ultra Thyroid Stim Horm 7.77 mcIU/mL (0.34-5.60)
[2021-01-28] MEDS ORDERED: Al Hydrox/Mg Hydrox/Simet LIQ 30 ML UDC PO PRN (21:49)
[2021-01-29] MEDS: Vitamin THERAPEUTIC TAB PO SCH (09:22)
[2021-01-29] MEDS: DULoxetine DR 60 mg CAP PO SCH (17:51)
[2021-01-29] MEDS: KETOTIFEN 0.025% BOTH EYES SCH (21:11)
[2021-01-30] MEDS: KETOTIFEN 0.025% BOTH EYES SCH ×2 (08:35→19:37)
[2021-01-30] MEDS: DULoxetine DR 60 mg CAP PO SCH (08:35)
[2021-01-30] MEDS: Vitamin THERAPEUTIC TAB PO SCH (08:35)
[2021-01-30] MEDS: Amphetamine MIXED SALT 10mgTAB PO SCH (14:00)
[2021-01-31] MEDS: Vitamin THERAPEUTIC TAB PO SCH (07:49)
[2021-01-31] MEDS: DULoxetine DR 60 mg CAP PO SCH (07:49)
[2021-01-31] MEDS: Amphetamine MIXED SALT 10mgTAB PO SCH ×2 (07:49→14:49)
[2021-01-31] MEDS: KETOTIFEN 0.025% BOTH EYES SCH ×2 (07:51→20:21)
[2021-02-01] MEDS: KETOTIFEN 0.025% BOTH EYES SCH (07:22)
[2021-02-01] MEDS: Vitamin THERAPEUTIC TAB PO SCH (07:30)
[2021-02-01] MEDS: DULoxetine DR 60 mg CAP PO SCH (07:30)
[2021-02-01] MEDS: Amphetamine MIXED SALT 10mgTAB PO SCH (07:30)
[2021-02-01 10:03] VITALS: BP 131/94
== END 2021-02-01 11:20 | disposition home or self-care (01) | DRG 751 ==
LOC: ED 20:22 → BSU 01-28 10:41
PROVIDERS: ADMIT Psychiatry & Neurology Addiction Psychiatry; ATTEND Psychiatry & Neurology Psychiatry